=== PATIENT | female | born 1945 | race Caucasian/White ===

== ENCOUNTER 2020-07-16 12:33 | Emergency (ER) | payer MEDICARE ==
[~2020-07-16] VITALS: Ht 170.2 cm; Wt 93.0 kg
== END 2020-07-16 14:00 | disposition home or self-care (01) ==
LOC: ER 12:33
DX: R04.0 Epistaxis (principal); Z79.01 Long term (current) use of anticoagulants
CPT/HCPCS: 30901; 99283-25